=== PATIENT | male | born 1950 | race African-American/Black ===

== ENCOUNTER 2017-03-11 14:02 | Inpatient (IN) ==
[2017-03-11] MEDS ORDERED: LIDOCAINE 100 MG/5 ML SYRINGE ONE (14:03)
[2017-03-11] MEDS ORDERED: AMIODARONE 150 MG/3 ML VIAL ONE (14:03)
[2017-03-11] MEDS ORDERED: AMIODARONE 150 MG/3 ML VIAL IV STA (14:06)
[2017-03-11] MEDS ORDERED: HEPARIN/NACL 0.9% 2 UNITS/ML 1,000 ML IV ONE (14:14)
[2017-03-11] MEDS ORDERED: LIDOCAINE 1%/EPI INJ 20 ML VIAL ONE (14:14)
[2017-03-11] MEDS ORDERED: HEPARIN/NACL 0.9% 2 UNITS/ML 500 ML IV ONE (14:14)
--- NOTE | 2017-03-11 14:17 | Emergency Department Note ---
Arrival - Arrival Stated Complaint: chest pain Mode of Arrival: Stretcher Source: EMS, RN Notes Reviewed - History of Present Illness HPI Narrative: Patient is a 66-year-old white male who developed chest pain lightheadedness and diaphoresis about 45 minutes prior to arrival of EMS. Patient called EMS and upon their arrival the patient was found to have marked EKG changes. STEMI alert was called and patient was transported [place]. As patient was rolled into room 11 he developed V. fib and loss of consciousness. Precordial thump was unsuccessful. Patient was cardioverted 4 with 360 J and had return of sinus rhythm. Onset (ago): hour(s) (1) Consistency: constant Severity: severe Allergies/Adverse Reactions: Allergies Allergy/AdvReac Type Severity Reaction Status Date / Time No Known Allergies Allergy Verified 03/11/17 14:51 Home Medications: Home Medications Medication Instructions Recorded Confirmed Type Unable To Obtain [Unable to Obtain] 03/11/17 03/11/17 History Review of System - Review of System ROS unobtainable: due to mental status 12 point system: reviewed and no additional remarkable complaints except as stated Exam Vital Signs: GENERAL: This is a well-nourished well-developed in extremis. VITAL SIGNS: Reviewed HEENT: Head is atraumatic and normocephalic. Pupils are equal round react to light. Extraocular movements are intact. Oropharynx is benign with moist mucous membranes. NECK: Neck is soft and supple without tenderness. There are no masses. There is no lymphadenopathy. LUNGS: Lungs are clear to auscultation. Chest rises symmetrically. There is no chest wall tenderness. CV: Initially without pulse until cardioversion. Patient had return of pulse with a rate of 129.. ABDOMEN: Abdomen is soft, nontender to palpation. There are no abdominal abnormal masses palpated. There is no organomegaly. Bowel sounds are present and active. SKIN: Diaphoretic. No rash. EXTREMITIES: Patient has full range of motion without tenderness. There is no pedal edema. NEUROLOGIC: Agitated, moves all extremities. Cranial nerves II through XII are grossly intact. Course Course Narrative: Prior to patient's arrival Graphic Design Assistant been notified. Dr. Lou had been notified. Cardiology was present. Patient was given 4000 units of heparin IV push. Patient had been given an aspirin prior to arrival by EMS. Patient was cardioverted with 360 J 4. Patient was taken emergently to the Graphic Design Assistant. Patient was given lidocaine IV prior to intubation. Patient was also given amiodarone 150 mg IV during cardioversions. Procedures - Intubation Time out performed: No sedative: Etomidate Mg Given: 20 paralytic: Succinylcholine Mg Given: 100 Laryngoscope: fiber optic video scope ET Tube Size: 7.5 ET Tube Uncuffed: No Tube Secured Depth (cm): 22 Tube Secured Location: teeth Tube Placement Confirmation: visualized tube passing through cords, equal breath sounds bilaterally, no breath sounds over epigastrium, confirmation detector color change Patient Tolerated Procedure: well Intubation Complications: none Results - EKG EKG results: interpreted by ERMD - Impressions EKG: Sinus rhythm with a rate of [address] segment elevation of 4-5 mm in V2 V3 V4 V5 V6,I, and aVL. Patient had deep reciprocal changes of ST segments in V3 and aVF. - Diagnostic Findings Procedure: Chest x-ray: image reviewed by me (ET tube is in good position above the ajit. This was determined by C arm in Graphic Design Assistant.) Disposition Clinical Impression: Acute ST elevation myocardial infarction (STEMI) of anterior wall, Ventricular fibrillation Disposition: Still a Patient Condition: Critical Time of Disposition: 15:08
[2017-03-11] MEDS ORDERED: fentaNYL 100 MCG/2 ML VIAL ONE (14:20)
[2017-03-11] MEDS ORDERED: MIDAZOLAM 2 MG/2 ML VIAL ONE ×2 (14:20→14:45)
[2017-03-11] MEDS ORDERED: ASPIRIN 325 MG TABLET PO STA (14:21)
[2017-03-11] MEDS ORDERED: HEPARIN 5,000 UNIT/1 ML VIAL IV STA (14:22)
[2017-03-11] MEDS ORDERED: AMIODARONE INJ 150 MG in DEXTROSE 5% 100 ML IV ONE (14:22)
[2017-03-11] MEDS ORDERED: LIDOCAINE 100 MG/5 ML SYRINGE IV STA (14:22)
[2017-03-11] MEDS ORDERED: PROPOFOL 1,000 MG/100 ML BOTTLE IV ONE (14:23)
[2017-03-11] MEDS ORDERED: ETOMIDATE 20 MG/10 ML VIAL IV ONE (14:27)
[2017-03-11] MEDS ORDERED: SUCCINYLCHOLINE 200 MG/10 ML VIAL ONE (14:27)
[2017-03-11] MEDS: PROPOFOL 1,000 MG/100 ML BOTTLE IV SCH ×4 (14:30→22:15)
[2017-03-11] MEDS ORDERED: NOREPINEPHRINE 4 MG/4 ML VIAL IV ONE (14:35)
[2017-03-11] MEDS ORDERED: EPTIFIBATIDE 75 MG/100 ML BOTTLE IV ONE ×2 (14:40→14:42)
[2017-03-11] MEDS ORDERED: EPTIFIBATIDE 20,000 MCG/10 ML VIAL ONE ×2 (14:40→14:42)
[2017-03-11] MEDS ORDERED: SODIUM CHLORIDE 0.9% IV SCH (14:41)
[2017-03-11] MEDS ORDERED: NOREPINEPHRINE IV SCH (14:41)
[2017-03-11] MEDS ORDERED: SUCCINYLCHOLINE 200 MG/10 ML VIAL IV STA (14:47)
[2017-03-11] MEDS ORDERED: ETOMIDATE 20 MG/10 ML VIAL IV STA (14:47)
[2017-03-11] MEDS ORDERED: EPTIFIBATIDE 75 MG/100 ML BOTTLE IV SCH (15:07)
[2017-03-11 15:34] LABS: Basophils % 0.2 % (0.0-0.8); Eosinophils % 0.1 % (0.00-10.9); Hematocrit 40.3 VOL% (42.0-52.0); Hemoglobin 14.1 GM/DL (14.0-18.0); Immature Granulocytes % 0.7 %; Immature Granulocytes Absolute 0.14 #; Lymphocytes # 1.8 10*3/uL (1.4-4.0); Lymphocytes % 9.1 % (21.2-54.2); Mean Corpuscular Hemoglobin 31 PG (27-34); Mean Corpuscular Volume 88.8 FL (87-102); Mean Platelet Volume 10.2 FL (9.6-12.0); Monocytes # 1.2 10*3/uL (0.11-0.8); Monocytes % 5.7 % (1.7-12.7); Neutrophils # 16.9 10*3/uL (1.4-7.4); Neutrophils % 84.2 % (38.7-73.9); Platelet Count 263 T/CUMM (130-400); Red Blood Count 4.54 MC/CUMM (3.8-5.5); Red Cell Distribution Width 13.3 % (9.3-17.3); White Blood Count 20.1 T/CUMM (4-12)
--- NOTE | 2017-03-11 15:43 | Cardiac Catheterization ---
Date of Procedure:: 03/11/17 Pre-op Diagnosis: Acute anterior myocardial infarction with ventricular fibrillation successfully resuscitated Post-op diagnosis: same Procedure: Clinical summary: This is a 66-year-old man presented with an acute anterior myocardial infarction brought in by ambulance. He was brought into the emergency room and on arrival went into ventricular fibrillation was successfully cardioverted to sinus rhythm. He was intubated and brought emergently to the Hand Assembler. He has ST elevation through V2 through 6 and in lead I and L Procedure performed: 1: Left heart catheterization 2: Coronary angiography 3: Aspiration thrombectomy of the proximal LAD 4: Stenting of the proximal LAD with a 4.0 x 15 mm Zions drug-eluting stent 5: Right femoral vein sheath placement 6: Right femoral sheath angiography 7: Angio-Seal closure right femoral arteriotomy site Patient was brought emergently to the Hand Assembler with the right groin was prepped and draped in usual sterile manner. Patient was given appropriate pressor medications to support his blood pressure. He was given intravenous sedation. Please see the flowsheet for details. A needle was inserted in the right femoral artery without difficulty and a 6 [place] sheath was positioned without difficulty. In a.m. Christiano right coronary catheter was advanced over guidewire under fluoroscopic control were 2 angiograms of the right coronary were undertaken ascertain no significant disease in the right coronary system. This catheter then was withdrawn and a Yovani left guide was advanced over guidewire under fluoroscopic control using her where the left main coronary was engaged. An 014 BMW wire was advanced to the distal portion of a large diagonal. A Pronto catheter was advanced over the BMW wire and multiple aspiration runs were taken across the occluded ostial LAD. This catheter then was withdrawn. A 3.0 x 15 mm Lavon balloon was advanced to the ostial stenosis and inflated to 10 marshal. There was improvement in flow down the vessel with residual stenosis noted. At this point the apex balloon was removed and with the assistance of a guide liner a Zions Alpine 4.0 x 15 mm drug-eluting stent was advanced to the area and deployed to maximum 10 marshal. There was good resolution of the stenosis with GAGE grade III flow down the LAD. There was some sluggish flow at the distal LAD but the stented segment appeared to be widely patent. Because of some issues with the patient's peripheral IVs we elected to place a 7 Slovenian sheath in the right femoral vein. This was done without difficulty. The stent delivery balloon and wire as well as a guide liner were removed from the guide. Repeat angiography confirmed good result at the stented segment. The guide was then removed. A pigtail ventriculographic catheter was advanced over guidewire under fluoroscopic control the ascending aorta and across aortic valve where left ventricular end diastolic pressures were measured. This catheter was then pulled back from the ventricle to the aorta under hemodynamic monitoring and removed. The patient underwent right femoral sheath angiography which demonstrated anatomy appropriate for Angio-Seal closure. This was performed without difficulty. Good hemostasis was obtained. Hemodynamics: Please see accompanying data sheet Coronary angiography: Right coronary artery: The right coronary was well-developed and free of significant obstructing lesions. There is diffuse irregularities noted but no significant flow- limiting stenosis can be identified. Left coronary artery: The left main coronary artery is well-developed and free of significant obstructing lesions. The circumflex coronary is a large non-dominant vessel that possesses an area of probably 80-90% stenosis in its midportion. The remainder of the circumflex and its branches are free of significant obstructing lesions. Left anterior descending coronary is completely occluded at its origin. There appears to be a large bulky thrombus noted in the proximal LAD. Filling of the distal LAD is not noted on injection of the [place] left coronary. Percutaneous coronary intervention After the above-described procedures lesion went from total occlusion to roughly 0% stenosis with GAGE grade III flow down the LAD. The LAD at the apical portion appeared to be occluded. There was no significant filling of the apical portion of the LAD noted. Remainder of the LAD and its branches appear to be free of significant obstructing lesions. There are very tortuous proximal vessels which made visualization of each segment of the proximal LAD very difficult but no significant stenosis could be identified. Right femoral sheath angiography: After injection of contrast into the right femoral arterial sheath appears to enter the common femoral above the bifurcation. No significant stenosis of the distal iliac, common femoral or bifurcation be noted based on this limited angiographic study. Conclusions: 1: Total occlusion of the ostium of the LAD now successfully opened with a 4.0 x 15 mm Zions drug-eluting stent with a good angiographic result. There is GAGE grade III flow down the LAD at the end of the procedure 2: Left ventricular end-diastolic pressure 18 mmHg 3: Mid circumflex disease for continued medical therapy at this point 4: Nonocclusive diffuse minor irregularities of the right coronary artery Discussion and recommendations: The patient presents with an acute anterior myocardial infarction complicated by V. fib arrest on presentation to the emergency room. He has now undergone percutaneous coronary intervention with successful opening of the LAD with a good angiographic result noted end procedure. He will be continued on aggressive ventilatory and hemodynamic support. He will watch closely for evidence of recurring ischemia or bleeding. Surgeon / Physician: Tyson Lou Estimated blood loss: minimal Specimens: none sent Condition: stable - Discharge Disposition: Still a Patient - Medications / Follow-up
[2017-03-11] MEDS ORDERED: ONDANSETRON 4 MG/2 ML VIAL IV PRN (15:44)
[2017-03-11 15:58] LABS: Albumin 3.7 G/DL (3.4-5.0); Bilirubin,Total 0.6 MG/DL (0.2-1.0); Calcium 8.3 MG/DL (8.5-10.1); Osmolality,Calculated 282.4 MOS/KG (273-304); Potassium 3.9 MMOL/L (3.5-5.1); Total Protein 6.8 G/DL (6.4-8.3)
[2017-03-11] MEDS ORDERED: SODIUM CHLORIDE 0.45% 1,000 ML IV SCH (16:00)
[2017-03-11 16:08] LABS: INR 1.1; PT Patient Result 11.3 SECS; Partial Thromboplastin Time 28.2 SECS (0-40)
[2017-03-11 17:00] LABS: Hypochromasia Slight; Macrocytosis 1+
[2017-03-11 17:35] LABS: ABG Base Excess -2.9 MMOL/L (-2.5-2.5); ABG Oxygen Saturation 99.6 % (95-100); ABG PCO2 33.5 MM HG (35-48); ABG PH 7.404 (7.35-7.45); ABG TCO2 17.8 MMOL/L (23-27); Allen Test Positive; Pt O2 Delivery Device Ventilator
--- NOTE | 2017-03-11 17:39 | XRay Report ---
Portable chest. Indication: Endotracheal tube placement. The heart is enlarged. There is left ventricular hypertrophy. An endotracheal tube has been placed. Its distal tip is 2 cm above the ajit. The pulmonary vasculature is normal. The lung sharif are clear. Degenerative changes are present within the spinal column and shoulders. Impression: Satisfactory endotracheal tube placement. Enlarged heart. PROCEDURE INTERPRETED AT [facility] DEPARTMENT OF RADIOLOGY Final Report Signed by: Dr. Jazmin Zavala
[2017-03-11] MEDS: TICAGRELOR 90 MG TABLET PO STA ×2 (17:52→19:26)
[2017-03-11] MEDS: TICAGRELOR 90 MG TABLET PO SCH (20:28)
[2017-03-11] MEDS: CARVEDILOL 6.25 MG TABLET PO SCH (22:11)
[2017-03-11] MEDS: ROSUVASTATIN 20 MG TABLET PO SCH (22:11)
[2017-03-11 22:20] LABS: Apearance,Urine CLOUDY (Clear); Bilirubin,Urine Negative (Negative); Blood, Urine Large mg/dL (Negative); Glucose,Urine (UA) Negative (Negative); Ketones,Urine 5 mg/dL (Negative); Nitrite,Urine Negative (Negative); Protein,Urine 100 MG/DL; RBC,Urine 9659 /HPF (0-4); Urine Color Amber (Yellow); Urine Specific Gravity > 1.060 (1.001-1.035); Urine Urobilinogen < 2.0 EU/DL (0.2-1.0); WBC,Urine 84 /HPF (0-6)
[2017-03-11 22:35] LABS: Barbiturates Screen,Urine Negative (Negative); Benzodiazepines Screen,Urine Positive (Negative); Cannabinoid Screen,Urine Negative (Negative); Opiate Screen,Urine Negative (Negative); Phencyclidine Screen,Urine Negative (Negative)
[2017-03-12] MEDS: PROPOFOL 1,000 MG/100 ML BOTTLE IV SCH ×3 (00:36→16:29)
[2017-03-12] MEDS: NOREPINEPHRINE 8 MG in SODIUM CHLORIDE 0.9% 242 ML IV SCH (01:17)
[2017-03-12 04:21] LABS: Basophils % 0.1 % (0.0-0.8); Eosinophils # 0.1 10*3/uL (0.0-0.87); Eosinophils % 0.3 % (0.00-10.9); Hematocrit 36.9 VOL% (42.0-52.0); Hemoglobin 12.8 GM/DL (14.0-18.0); Immature Granulocytes % 0.3 %; Immature Granulocytes Absolute 0.05 #; Lymphocytes # 3.2 10*3/uL (1.4-4.0); Lymphocytes % 22.2 % (21.2-54.2); Mean Corpuscular HGB Conc 34.7 GM/DL (32-36); Mean Corpuscular Hemoglobin 31 PG (27-34); Mean Corpuscular Volume 88.9 FL (87-102); Mean Platelet Volume 10.4 FL (9.6-12.0); Monocytes # 1.5 10*3/uL (0.11-0.8); Monocytes % 10.6 % (1.7-12.7); Neutrophils # 9.5 10*3/uL (1.4-7.4); Neutrophils % 66.5 % (38.7-73.9); Platelet Count 237 T/CUMM (130-400); Red Blood Count 4.15 MC/CUMM (3.8-5.5); Red Cell Distribution Width 13.7 % (9.3-17.3); White Blood Count 14.3 T/CUMM (4-12)
[2017-03-12 05:02] LABS: CKMB % 23.5 %; Risk Ratio 4.42; VLDL CHOLESTEROL 61.2 MG/DL
[2017-03-12 05:19] LABS: Troponin I Only 46.1 NG/ML (0.00-0.045)
--- NOTE | 2017-03-12 07:06 | EKG Report ---
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
--- NOTE | 2017-03-12 08:01 | Cardiology History & Physical ---
Assessment and Plan (1) Coronary artery disease Status: Acute Current Visit: Yes (2) Hypotension Status: Acute Assessment and plan: He is maintaining his blood pressure on low-dose Levophed. His rates are good and his pressures are acceptable. An echocardiogram is pending for this morning. Current Visit: Yes (3) Hematuria Status: Acute Current Visit: Yes (4) Ventricular tachycardia Status: Acute Assessment and plan: He is having runs of 20 beats of ventricular tachycardia times we are waiting on lab from this morning and I do not want to start him on amiodarone unless this continues. Current Visit: Yes (5) Ischemic cardiomyopathy Status: Acute Current Visit: Yes (6) Acute ST elevation myocardial infarction (STEMI) of anterior wall Status: Acute Current Visit: Yes (7) Ventricular fibrillation Status: Acute Current Visit: Yes History of Present Illness Chief complaint: STEMI History of present illness: Mr. Clemons is a 66 year old male who was apparently working in his yard and became diaphoretic and felt that he had gotten "overheated". This progressed to significant chest discomfort. An ambulance was called and the patient was diagnosed fairly promptly with an ST elevation myocardial infarction. The Electro Optics Engineer was activated. When the patient was rolling to the emergency room he was placed in room 11 in the ER and went into ventricular fibrillation and was successfully resuscitated and cardioverted. He was taken emergently to the Electro Optics Engineer where he had opening of the ostial LAD stenosis. He has residual disease in the circumflex which will be addressed at a later time. He has had some mild hypotension which is responded to Levophed and he is overall reasonably stable with good urine output and reasonable pressures on low-dose Levophed. Since his procedure he has been reasonably stable with runs of ventricular tachycardia at 15-20 beats and one episode of what looks like a accelerated idioventricular rhythm. He is currently stable and has good oxygen saturations and is awake and alert and likely will be extubated here shortly. I do not have any prior medical history as the patient has been unable to give me any history. Home Medications Medication Instructions Recorded Confirmed Type No Known Home Medications [No 03/11/17 03/11/17 History Known Home Medications] Allergies Allergy/AdvReac Type Severity Reaction Status Date / Time No Known Allergies Allergy Verified 03/11/17 14:51 Medical,Surgical,& Family Hx - Medical History Cardio: History of: Hypertension - Social History Smoking Status: Unknown if ever smoked Frequency of Alcohol Use: Frequently Type of Drug Use: Unknown Cardiology Physical Exam - Constitutional Vitals: Vital Signs Temp Pulse Resp BP Pulse Ox 97.9 F 70 12 97/73 100 03/12/17 07:15 03/12/17 07:30 03/12/17 07:26 03/12/17 07:30 03/12/17 07:30 Intake and Output 03/11/17 03/11/17 03/12/17 15:59 23:59 07:59 Intake Total 500 / 500 512 / 512 1200 / 1200 Output Total 440 / 440 950 / 950 Balance 500 / 500 72 / 72 250 / 250 Intake: IV 0 / 0 512 / 512 1200 / 1200 INTEGRILIN 75 mg In 100 100 / 100 ml @ 2 MCG/KG/MIN 14.511 mls/hr IV .[id number] HIEN Rx# :[id number] Levophed 10 mg In Ns 250 0 / 0 112 / 112 ml @ 2 MCG/MIN 3.12 mls/ hr IV TITRATE HIEN Rx#: [id number] DIPRIVAN 1,000 mg In 100 300 / 300 200 / 200 ml @ 10 MCG/KG/MIN 5.443 mls/hr IV TITRATE HIEN Rx# :[id number] 1/2Ns 1,000 ml @ 75 mls/ 1000 / 1000 hr IV .[id number] HIEN Rx#: [id number] Intake - Additional IV 500 / 500 Volume (mLs) Left Hand 500 / 500 Output: Urine 440 / 440 950 / 950 Other: Voiding Method Indwelling Catheter Indwelling Catheter Weight 90.718 kg 90.718 kg 91.263 kg Patient Weight 03/12/17 23:59 Weight 91.263 kg Exam: Physical examination: General: The patient is awake and alert and oriented -3. The patient is sedated on the ventilator but is answering questions appropriately HEENT: Normocephalic, sclera are clear there are no lid xanthelasmas noted. Oral mucosa is free of cyanosis or pallor. Neck: The neck is supple without JVD. Carotid upstrokes are normal volume and amplitude. There is no audible bruit. There is no palpable thyroid. Trachea is midline. Chest: Lungs: The patient is comfortable at rest without intercostal retractions or abdominal breathing. There are no adventitial sounds rales rubs rhonchi or wheezes noted. Cardiovascular: The PMI is nondisplaced. No palpable thrill S3 or S4. There is a regular rate and rhythm with no murmur rub or gallop noted. Dorsalis pedis posterior tibial are 1+ and femoral pulses are 1+ and equal bilaterally. Abdomen: Abdomen is soft and nontender with normal active bowel sounds. There is no palpable mass or organomegaly noted. There is no midline bruit. Extremities exam: There is no cyanosis clubbing or edema. Skin: Skin is warm and dry without ecchymosis or urticaria or skin rash. There are no palpable nodules. Musculoskeletal: There is no kyphosis or scoliosis noted. Result/EKG - Labs CBC & BMP: 03/12/17 03:38 03/11/17 15:23 Labs: Laboratory Results - last 24 hr 03/11/17 03/11/17 03/11/17 15:23 15:23 15:23 WBC 20.1 H RBC 4.54 Hgb 14.1 Hct 40.3 L MCV 88.8 MCH 31 MCHC 35.0 RDW 13.3 Plt Count 263 MPV 10.2 Neut % (Auto) 84.2 H Lymph % (Auto) 9.1 L [place] % (Auto) 5.7 Eos % (Auto) 0.1 Baso % (Auto) 0.2 Neut # (Auto) 16.9 H Lymph # (Auto) 1.8 [place] # (Auto) 1.2 H Eos # (Auto) 0.0 Baso # (Auto) 0.0 Immature Gran % 0.7 Nucleated RBC % 0.0 Immature Gran # 0.14 Nucleated RBCs # 0.00 Immature Plt Fraction 0.0 Hypochromasia Slight Macrocytosis 1+ INR 1.1 PT Patient/Control Mix 11.3 Circ Anticoag PTT 28.2 ABG pH ABG pCO2 ABG pO2 ABG HCO3 ABG Total CO2 ABG O2 Saturation ABG Base Excess FiO2 Sodium 140 Potassium 3.9 Chloride 107 Carbon Dioxide 18 L Anion Gap 18.9 H BUN 17 Creatinine 1.80 H GFR Calculation 54 BUN/Creatinine Ratio 9.00 Glucose 140 H Calculated Osmolality 282.4 Calcium 8.3 L Magnesium Total Bilirubin 0.60 AST 44 H ALT 46 Alkaline Phosphatase 76 Total Creatine Kinase CK-MB (CK-2) CK and CKMB Interp Troponin I Total Protein 6.8 Albumin 3.7 Globulin 3.1 Albumin/Globulin Ratio 1.1 Triglycerides Cholesterol LDL Cholesterol VLDL Cholesterol HDL Cholesterol Heart Disease Risk Ratio Urine Color Urine Appearance Urine pH Ur Specific [place] Urine Protein Urine Glucose (UA) Urine Ketones Urine Blood Urine Nitrate Urine Bilirubin Urine Urobilinogen Urine Leukocytes Urine RBC Urine WBC Ur Culture Indicated? Urine Opiates Screen Ur Barbiturates Screen Ur Phencyclidine Scrn U Amphetamine/Methamph U Benzodiazepines Scrn U Cocaine Metab Screen U Cannabinoids Screen 03/11/17 03/11/17 03/11/17 15:23 15:23 17:10 WBC RBC Hgb Hct MCV MCH MCHC RDW Plt Count MPV Neut % (Auto) Lymph % (Auto) [place] % (Auto) Eos % (Auto) Baso % (Auto) Neut # (Auto) Lymph # (Auto) [place] # (Auto) Eos # (Auto) Baso # (Auto) Immature Gran % Nucleated RBC % Immature Gran # Nucleated RBCs # Immature Plt Fraction Hypochromasia Macrocytosis INR PT Patient/Control Mix Circ Anticoag PTT ABG pH ABG pCO2 ABG pO2 ABG HCO3 ABG Total CO2 ABG O2 Saturation ABG Base Excess FiO2 Sodium Potassium Chloride Carbon Dioxide Anion Gap BUN Creatinine GFR Calculation BUN/Creatinine Ratio Glucose Calculated Osmolality Calcium Magnesium 2.3 Total Bilirubin AST ALT Alkaline Phosphatase Total Creatine Kinase CK-MB (CK-2) CK and CKMB Interp Troponin I 0.822 H 7.680 H D Total Protein Albumin Globulin Albumin/Globulin Ratio Triglycerides Cholesterol LDL Cholesterol VLDL Cholesterol HDL Cholesterol Heart Disease Risk Ratio Urine Color Urine Appearance Urine pH Ur Specific [place] Urine Protein Urine Glucose (UA) Urine Ketones Urine Blood Urine Nitrate Urine Bilirubin Urine Urobilinogen Urine Leukocytes Urine RBC Urine WBC Ur Culture Indicated? Urine Opiates Screen Ur Barbiturates Screen Ur Phencyclidine Scrn U Amphetamine/Methamph U Benzodiazepines Scrn U Cocaine Metab Screen U Cannabinoids Screen 03/11/17 03/11/17 03/11/17 17:25 20:55 21:00 WBC RBC Hgb Hct MCV MCH MCHC RDW Plt Count MPV Neut % (Auto) Lymph % (Auto) [place] % (Auto) Eos % (Auto) Baso % (Auto) Neut # (Auto) Lymph # (Auto) [place] # (Auto) Eos # (Auto) Baso # (Auto) Immature Gran % Nucleated RBC % Immature Gran # Nucleated RBCs # Immature Plt Fraction Hypochromasia Macrocytosis INR PT Patient/Control Mix Circ Anticoag PTT ABG pH 7.404 ABG pCO2 33.5 L ABG pO2 556.0 H ABG HCO3 22.0 ABG Total CO2 17.8 L ABG O2 Saturation 99.6 ABG Base Excess -2.9 L FiO2 100.00 Sodium Potassium Chloride Carbon Dioxide Anion Gap BUN Creatinine GFR Calculation BUN/Creatinine Ratio Glucose Calculated Osmolality Calcium Magnesium Total Bilirubin AST ALT Alkaline Phosphatase Total Creatine Kinase CK-MB (CK-2) CK and CKMB Interp Troponin I 28.000 H D Total Protein Albumin Globulin Albumin/Globulin Ratio Triglycerides Cholesterol LDL Cholesterol VLDL Cholesterol HDL Cholesterol Heart Disease Risk Ratio Urine Color [place] Urine Appearance Cloudy Urine pH 6.0 Ur Specific [place] > 1.060 H Urine Protein 100 Urine Glucose (UA) Negative Urine Ketones 5 Urine Blood Large Urine Nitrate Negative Urine Bilirubin Negative Urine Urobilinogen < 2.0 H Urine Leukocytes Negative Urine RBC 9659 Urine WBC 84 Ur Culture Indicated? Results to follow Urine Opiates Screen Ur Barbiturates Screen Ur Phencyclidine Scrn U Amphetamine/Methamph U Benzodiazepines Scrn U Cocaine Metab Screen U Cannabinoids Screen 03/11/17 03/12/17 03/12/17 21:00 01:53 03:38 WBC 14.3 H RBC 4.15 Hgb 12.8 L Hct 36.9 L MCV 88.9 MCH 31 MCHC 34.7 RDW 13.7 Plt Count 237 MPV 10.4 Neut % (Auto) 66.5 Lymph % (Auto) 22.2 [place] % (Auto) 10.6 Eos % (Auto) 0.3 Baso % (Auto) 0.1 Neut # (Auto) 9.5 H Lymph # (Auto) 3.2 [place] # (Auto) 1.5 H Eos # (Auto) 0.1 Baso # (Auto) 0.0 Immature Gran % 0.3 Nucleated RBC % 0.0 Immature Gran # 0.05 Nucleated RBCs # 0.00 Immature Plt Fraction 0.0 Hypochromasia Macrocytosis INR PT Patient/Control Mix Circ Anticoag PTT ABG pH ABG pCO2 ABG pO2 ABG HCO3 ABG Total CO2 ABG O2 Saturation ABG Base Excess FiO2 Sodium Potassium Chloride Carbon Dioxide Anion Gap BUN Creatinine GFR Calculation BUN/Creatinine Ratio Glucose Calculated Osmolality Calcium Magnesium Total Bilirubin AST ALT Alkaline Phosphatase Total Creatine Kinase CK-MB (CK-2) CK and CKMB Interp Troponin I 44.500 H D Total Protein Albumin Globulin Albumin/Globulin Ratio Triglycerides Cholesterol LDL Cholesterol VLDL Cholesterol HDL Cholesterol Heart Disease Risk Ratio Urine Color Urine Appearance Urine pH Ur Specific [place] Urine Protein Urine Glucose (UA) Urine Ketones Urine Blood Urine Nitrate Urine Bilirubin Urine Urobilinogen Urine Leukocytes Urine RBC Urine WBC Ur Culture Indicated? Urine Opiates Screen Negative Ur Barbiturates Screen Negative Ur Phencyclidine Scrn Negative U Amphetamine/Methamph Negative U Benzodiazepines Scrn Positive H U Cocaine Metab Screen Negative U Cannabinoids Screen Negative 03/12/17 03:38 WBC RBC Hgb Hct MCV MCH MCHC RDW Plt Count MPV Neut % (Auto) Lymph % (Auto) [place] % (Auto) Eos % (Auto) Baso % (Auto) Neut # (Auto) Lymph # (Auto) [place] # (Auto) Eos # (Auto) Baso # (Auto) Immature Gran % Nucleated RBC % Immature Gran # Nucleated RBCs # Immature Plt Fraction Hypochromasia Macrocytosis INR PT Patient/Control Mix Circ Anticoag PTT ABG pH ABG pCO2 ABG pO2 ABG HCO3 ABG Total CO2 ABG O2 Saturation ABG Base Excess FiO2 Sodium Potassium Chloride Carbon Dioxide Anion Gap BUN Creatinine GFR Calculation BUN/Creatinine Ratio Glucose Calculated Osmolality Calcium Magnesium Total Bilirubin AST ALT 57 Alkaline Phosphatase Total Creatine Kinase 1221 H CK-MB (CK-2) 286.8 H CK and CKMB Interp 23.5 Troponin I 46.100 H Total Protein Albumin Globulin Albumin/Globulin Ratio Triglycerides 306 H Cholesterol 212 H LDL Cholesterol 133.0 VLDL Cholesterol 61.2 HDL Cholesterol 48 Heart Disease Risk Ratio 4.42 Urine Color Urine Appearance Urine pH Ur Specific [place] Urine Protein Urine Glucose (UA) Urine Ketones Urine Blood Urine Nitrate Urine Bilirubin Urine Urobilinogen Urine Leukocytes Urine RBC Urine WBC Ur Culture Indicated? Urine Opiates Screen Ur Barbiturates Screen Ur Phencyclidine Scrn U Amphetamine/Methamph U Benzodiazepines Scrn U Cocaine Metab Screen U Cannabinoids Screen Quality Measures - VTE Contraindication to Pharmacological VTE Prophylaxis: High Risk of Bleeding
--- NOTE | 2017-03-12 08:13 | EKG Report ---
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
[2017-03-12 08:25] LABS: Albumin 3.7 G/DL (3.4-5.0); Calcium 8.7 MG/DL (8.5-10.1); Osmolality,Calculated 286.1 MOS/KG (273-304); Potassium 4.2 MMOL/L (3.5-5.1); Total Protein 6.9 G/DL (6.4-8.3)
--- NOTE | 2017-03-12 08:35 | Pulmonology Consult Note ---
Assessment and Plan (1) Acute respiratory failure Status: Acute Assessment and plan: This was due to ventricular fibrillation requiring emergent intubation with subsequent cardiac intervention with catheterization. He is alert has a clear chest x-ray no history of lung disease. Will get him extubated this morning. Current Visit: Yes (2) Acute ST elevation myocardial infarction (STEMI) of anterior wall Status: Acute Assessment and plan: Due to LAD occlusion with clot. He had a thrombectomy with stent. Not clear what his LV function is at this point. Does not appear to be in heart failure radiographically or by physical exam. Current Visit: Yes (3) Ventricular fibrillation Status: Acute Assessment and plan: Episode in the ER treated with defibrillation and intubation. Current Visit: Yes History of Present Illness Chief complaint: Post MCI, ventricular fibrillation History of present illness: Mr. Clemons is a 66 year old male who was admitted yesterday with chest pain and dizziness. He had an acute anterior myocardial infarction. He had ventricular fibrillation in the emergency room and was intubated. He has been for cardiac catheterization and intervention. He had a clot in his LAD. This was removed. He had an LAD stent placed. He is now alert and calm on the ventilator and ready for extubation. No history of any lung disease. Has a clear chest x-ray. Home Medications Medication Instructions Recorded Confirmed Type No Known Home Medications [No 03/11/17 03/11/17 History Known Home Medications] Allergies Allergy/AdvReac Type Severity Reaction Status Date / Time No Known Allergies Allergy Verified 03/11/17 14:51 ROS unobtainable: due to endotracheal tube Exam (Pulmonay) H&P - Constitutional Vitals: Period Temp Pulse Resp BP Sys/Walter Pulse Ox Last 24 Hr 96.6 F-97.9 F 0-129 12-28 79-138/53-98 98-100 Exam: Vital signs are normal. Patient responsive. Pupils react to light. Has orotracheal tube in place. Neck supple no bruits. Chest sounds clear. Heart normal rate and rhythm no murmurs. Abdomen soft nontender no masses. Extremities no clubbing cyanosis edema. Calves nontender. Medical,Surgical,& Family Hx - Medical History Cardio: History of: Hypertension - Social History Smoking Status: Unknown if ever smoked Frequency of Alcohol Use: Frequently Type of Drug Use: Unknown Results - Labs CBC & BMP: 03/12/17 03:38 03/12/17 07:54 Lab Results: I have reviewed the past 24 hour labs - Diagnostic Findings Procedure: Chest x-ray: image reviewed by me (Lungs clear. ET tube about 2 cm above the ajit.) Quality Measures - VTE Contraindication to Pharmacological VTE Prophylaxis: High Risk of Bleeding
[2017-03-12] MEDS: ENALAPRIL 2.5 MG TABLET PO SCH (08:42)
[2017-03-12] MEDS: PANTOPRAZOLE 40 MG TABLET PO SCH (08:42)
[2017-03-12] MEDS: TICAGRELOR 90 MG TABLET PO SCH ×2 (08:42→20:24)
[2017-03-12] MEDS: ASPIRIN EC 81 MG TABLET PO SCH (08:42)
[2017-03-12] MEDS: CARVEDILOL 6.25 MG TABLET PO SCH ×2 (08:43→20:24)
[2017-03-12 09:02] LABS: Allen Test Positive; Pt O2 Delivery Device Ventilator
--- NOTE | 2017-03-12 09:10 | XRay Report ---
Portable chest. Indication: Ventilated patient. Comparison: May 11, 2017. The heart is normal in size with left ventricular hypertrophy. The distal tip of the endotracheal tube is 2.4 cm above the ajit. The lung sharif are clear. No pneumothorax or pleural effusion. The distal tip of the nasogastric tube projects off the field of the film, beyond the GE junction. Impression: No acute process is seen. PROCEDURE INTERPRETED AT [facility] DEPARTMENT OF RADIOLOGY Final Report Signed by: Dr. Jazmin Zavala
[2017-03-12 09:20] LABS: ABG Base Excess 0.1 MMOL/L (-2.5-2.5); ABG HCO3 24.5 MMOL/L (20-26); ABG PCO2 37.3 MM HG (35-48); ABG TCO2 20.9 MMOL/L (23-27)
[2017-03-12 11:27] LABS: ABG Base Excess -0.1 MMOL/L (-2.5-2.5); ABG HCO3 23.9 MMOL/L (20-26); ABG Oxygen Saturation 98.2 % (95-100); ABG PCO2 36.6 MM HG (35-48); ABG PH 7.432 (7.35-7.45)
--- NOTE | 2017-03-12 15:38 | ECHO Report ---
DeonteMichael Exam Date: 03/12/2017 09:16 Referring Physician: Technologist: hailey Palomo ARDMS, RVT Age: 66 Ht (in): 72 Wt (lb): 200 Gender: M Exam Location: [facility] Echo Indications: STEMI, V-Fib, V-Tach, CAD, S/P heart cath, Hypotension BP: 118 / 80 HR: 66 Rhythm: Sinus Technical Quality: Technically difficult study IMPRESSIONS Technically limited study, with poor visualization of the left ventricle. Normal left ventricular size, without hypertrophy, with severe hypokinesis of the mid to distal anterior/anterolateral wall, including the apex. The remaining segments have normal systolic thickening. Estimated left ventricular ejection fraction 40%. Normal diastolic function. Mild biatrial enlargement. MEASUREMENTS (Male / Female) Normal Values 2D ECHO LV Diastolic Diameter PLAX 6.0 cm 4.2 - 5.9 / 3.9 - 5.3 cm LV Systolic Diameter PLAX 4.7 cm LV Fractional Shortening PLAX 21.1 % IVS Diastolic Thickness 0.6 cm 0.6 - 1.0 / 0.6 - 0.9 cm LVPW Diastolic Thickness 1.0 cm 0.6 - 1.0 / 0.6 - 0.9 cm RV Internal Dim ED PLAX 3.7 cm Aortic Root Diameter 3.8 cm LA Systolic Diameter LX 4.4 cm 3.0 - 4.0 / 2.7 - 3.8 cm DOPPLER TR Peak Velocity 224.0 cm/s TR Peak Gradient 20.1 mmHg FINDINGS Left Ventricle Technically limited study, with poor visualization of the left ventricle. Normal left ventricular size, without hypertrophy, with severe hypokinesis of the mid to distal anterior/anterolateral wall, including the apex. The remaining segments have normal systolic thickening. Estimated left ventricular ejection fraction 40%. Normal diastolic function. Right Ventricle Normal right ventricular size, with normal systolic function. Right Atrium The right atrium is mildly enlarged. Left Atrium The left atrium is mildly enlarged. Mitral Valve Morphologically normal mitral valve without significant stenosis or prolapse. There is no mitral regurgitation. Aortic Valve Morphologically normal aortic valve without significant sclerosis or stenosis. There is no aortic regurgitation. Tricuspid Valve Morphologically normal tricuspid valve without significant stenosis or regurgitation. Insufficient data to estimate pulmonary artery systolic pressure. Pulmonic Valve Pulmonic valve not well visualized. No pulmonary valve regurgitation. Pericardium Normal pericardium without effusion. Aorta Normal ascending aorta dimension. Shaheen Roka (Electronically Signed) Final Date: 12 March 2017 15:36
[2017-03-12] MEDS: diphenhydrAMINE CAP 50 MG CAPSULE PO SCH (20:24)
[2017-03-12] MEDS: ROSUVASTATIN 20 MG TABLET PO SCH (20:24)
[2017-03-13] MEDS: NOREPINEPHRINE 8 MG in SODIUM CHLORIDE 0.9% 242 ML IV SCH (00:34)
[2017-03-13 07:01] LABS: Calcium 8.1 MG/DL (8.5-10.1); Magnesium 2.5 MG/DL (1.8-2.4); Osmolality,Calculated 281.3 MOS/KG (273-304); Potassium 3.8 MMOL/L (3.5-5.1)
--- NOTE | 2017-03-13 07:22 | EKG Report ---
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
[2017-03-13] MEDS: ASPIRIN EC 81 MG TABLET PO SCH (08:21)
[2017-03-13] MEDS: PANTOPRAZOLE 40 MG TABLET PO SCH (08:21)
[2017-03-13] MEDS: CARVEDILOL 6.25 MG TABLET PO SCH ×2 (08:21→20:54)
[2017-03-13] MEDS: TICAGRELOR 90 MG TABLET PO SCH ×2 (08:21→20:54)
[2017-03-13] MEDS: ENALAPRIL 2.5 MG TABLET PO SCH (08:23)
--- NOTE | 2017-03-13 08:49 | XRay Report ---
Exam: XR chest 1V portable Date: 03/13/2017 4:00 AM Indication: Follow-up ventilator extubation Comparison: 03/12/2017 Technical: AP Findings: Cardiomegaly is present with ASVD. Endotracheal tube has been removed. External cardiac leads are present. Mediastinum is otherwise intact. Degenerative changes are present along the thoracic spine. No pneumothorax. Impression: 1. Removal endotracheal tube and cardiac pad 2. Cardiomegaly without overt decompensation with minimal basilar atelectatic change in the left. PROCEDURE INTERPRETED AT [facility] DEPARTMENT OF RADIOLOGY Final Report Signed by: Dr. Freddy Sinha
--- NOTE | 2017-03-13 12:04 | Cardiology Progress Note ---
<Marie Prince E - Last Filed: 03/13/17 11:50> Assessment and Plan - Time spent with patient Time spent with patient: Greater than 30 minutes (1) Dyslipidemia Status: Chronic Assessment and plan: SEE PLAN OF CARE LISTED BELOW Current Visit: Yes (2) Acute ST elevation myocardial infarction (STEMI) of anterior wall Status: Acute Assessment and plan: SEE PLAN OF CARE LISTED BELOW Current Visit: Yes (3) Ventricular fibrillation Status: Resolved Assessment and plan: SEE PLAN OF CARE LISTED BELOW Current Visit: Yes (4) Coronary artery disease Status: Chronic Assessment and plan: SEE PLAN OF CARE LISTED BELOW Current Visit: Yes Qualifiers: Coronary Disease-Associated Artery/Lesion type: [place] artery [place] vs. transplanted heart: [place] heart (5) Ventricular tachycardia Status: Resolved Assessment and plan: SEE PLAN OF CARE LISTED BELOW Current Visit: Yes (6) Ischemic cardiomyopathy Status: Acute Assessment and plan: SEE PLAN OF CARE LISTED BELOW Current Visit: Yes (7) Acute respiratory failure Status: Resolved Assessment and plan: SEE PLAN OF CARE LISTED BELOW Current Visit: Yes Cardiology - PN: Subj Interval history: CARDIOLOGY: DR. HOWELL (New) SUMMARY: Mr. Clemons, 66WM, with no prior history of known coronary artery disease presented to the ER March 11, 2017 with STEMI. As the patient was entering the emergency department, he went into ventricular fibrillation and was successfully resuscitated and cardioverted, intubated. At that time he was emergently taken to the cardiac catheterization lab where he required thrombectomy and stenting of an ostial LAD stenosis. He has residual disease in the circumflex (80-90% stenosis in the midportion) which will be addressed at a later time. He did require pressors postoperatively and this has been weaned off. Postoperatively he did have several runs of ventricular tachycardia (15-20 beats) and an accelerated idioventricular rhythm. Patient has been extubated and progressing nicely at this time. Echocardiogram: EF 40% , no significant valvular abnormality. 2016: This morning, patient is doing well. He denies chest pain, heaviness or tightness. No additional arrhythmias noted overnight. Patient is tolerating aspirin, Brilinta, beta-ramon, KRISTEN inhibitor and lipid-lowering agent. Cardiac rehab has seen and evaluated the patient. At this time, we will ask that he ambulate a bit more and may be transitioned to our telemetry unit. I will further discuss with Dr. Yu and await additional recommendations. IMPRESSION/PLAN: 1. STEMI OF ANTERIOR WALL - status post emergent revascularization of the LAD. Continue aspirin and Brilinta. 2. HYPERTENSION - tolerating beta-ramon and KRISTEN inhibitor. 3. DYSLIPIDEMIA - LDL 133. Patient is currently being treated with Crestor. Triglycerides are 306 and I will add omega-3 fish oil twice daily. 4. CARDIOMYOPATHY -EF 40%. Suspect this is ischemic related to his recent cardiac insult. Hopefully, with current cardiac cocktail of medications his ejection fraction will improve and normalized. 5. VENTRICULAR ARRHYTHMIAS -no additional arrhythmias noted overnight. Beta- blockade continues. We will continue to monitor his telemetry. 6. ACUTE RESPIRATORY FAILURE - patient has now been successfully weaned from ventilator and is tolerating this without problems at all. SPO2 saturation 96% Exam (Progress Note) - Constitutional Vitals: Period Temp Pulse Resp BP Sys/Walter Pulse Ox Last 24 Hr 98.1 F-99.8 F 60-98 12-18 86-118/46-77 96-100 Exam: General: [Appears well with no apparent distress.] [Pleasant and cooperative. ] [Appears comfortable.] HEENT: [PERRL, normocephalic, atraumatic. Mucous membranes moist. No jaundice noted. Conjunctiva moist and clear, sclerae anicteric] Neck: No JVD/HJR, no thyromegaly or lymphadenopathy noted. No carotid bruit appreciated Cardiac: [Regular rate and rhythm.] [No murmur rub or gallop.] Lungs: [Clear to auscultation without accessory muscle use to assist the respiratory pattern.] Not requiring oxygen. Abdomen: Soft, bowel sounds normoactive. Nontender and nondistended. No abdominal bruit or thrill noted. No masses noted. Musculoskeletal: No fluid collection. Decreased range of motion is noted. Extremities: Right groin soft, free of hematoma or bruit. Mild ecchymosis noted. No clubbing, cyanosis noted. [ No edema noted.] Upper extremity pulses 2+. Lower extremity pulses 2+. Capillary refill less than 3 seconds. Skin: No unusual lesions or rashes. No skin breakdown appreciated. Neuro: Awake, alert and oriented 3. Moves all extremities well without hemiparesis or paralysis. No essential tremor is appreciated. Result/EKG - Labs CBC & BMP: 03/12/17 03:38 03/13/17 04:21 Lab Results: I have reviewed the past 24 hour labs Labs: Laboratory Results - last 24 hr 03/13/17 04:21 Sodium 141 Potassium 3.8 Chloride 107 Carbon Dioxide 27 Anion Gap 10.8 BUN 16 Creatinine 1.00 GFR Calculation 113 BUN/Creatinine Ratio 16.00 Glucose 103 Calculated Osmolality 281.3 Calcium 8.1 L Magnesium 2.5 H - Diagnostic Findings Procedure: Chest x-ray: report reviewed by me - EKG EKG results: interpreted by me EKG shows: sinus rhythm Quality Measures - VTE Contraindication to Pharmacological VTE Prophylaxis: High Risk of Bleeding Specialty Discharge - Follow Up or Referrals <Pasquale Yu - Last Filed: 03/13/17 13:53> Exam (Progress Note) - Constitutional Vitals: Period Temp Pulse Resp BP Sys/Walter Pulse Ox Last 24 Hr 98.1 F-99.8 F 60-98 12-18 86-118/46-77 96-100 Result/EKG - Labs CBC & BMP: 03/12/17 03:38 03/13/17 04:21 Labs: Laboratory Results - last 24 hr 03/13/17 04:21 Sodium 141 Potassium 3.8 Chloride 107 Carbon Dioxide 27 Anion Gap 10.8 BUN 16 Creatinine 1.00 GFR Calculation 113 BUN/Creatinine Ratio 16.00 Glucose 103 Calculated Osmolality 281.3 Calcium 8.1 L Magnesium 2.5 H
[2017-03-13] MEDS: ROSUVASTATIN 20 MG TABLET PO SCH (20:54)
[2017-03-13] MEDS: OMEGA 3 ACID ETHYL ESTERS 1 GM CAPSULE PO SCH (20:54)
[2017-03-13] MEDS: diphenhydrAMINE CAP 50 MG CAPSULE PO SCH (20:54)
[2017-03-14 05:27] LABS: Basophils % 0.4 % (0.0-0.8); Eosinophils # 0.4 10*3/uL (0.0-0.87); Eosinophils % 3.6 % (0.00-10.9); Hemoglobin 11.9 GM/DL (14.0-18.0); Immature Granulocytes % 0.2 %; Immature Granulocytes Absolute 0.02 #; Lymphocytes # 2.8 10*3/uL (1.4-4.0); Lymphocytes % 27.1 % (21.2-54.2); Mean Corpuscular Hemoglobin 30 PG (27-34); Mean Corpuscular Volume 89.3 FL (87-102); Mean Platelet Volume 11.1 FL (9.6-12.0); Monocytes # 0.9 10*3/uL (0.11-0.8); Neutrophils # 6.1 10*3/uL (1.4-7.4); Neutrophils % 59.7 % (38.7-73.9); Platelet Count 199 T/CUMM (130-400); Red Blood Count 3.92 MC/CUMM (3.8-5.5); Red Cell Distribution Width 13.2 % (9.3-17.3); White Blood Count 10.3 T/CUMM (4-12)
[2017-03-14 05:53] LABS: Calcium 8.4 MG/DL (8.5-10.1); Magnesium 2.1 MG/DL (1.8-2.4); Osmolality,Calculated 283.1 MOS/KG (273-304); Potassium 3.8 MMOL/L (3.5-5.1)
--- NOTE | 2017-03-14 06:57 | EKG Report ---
Stationary ECG Study 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
--- NOTE | 2017-03-14 07:26 | Pulmonology Progress Note ---
Pulmonary - PN: Subj Interval history: 66-year-old white male that had an acute myocardial infarction with ventricular fibrillation. He was defibrillated and mechanically ventilated he had catheterization with removal of a clot from his LAD and dilatation with stent. He is now off the ventilator. O2 sat normal on room air. Should be ready to go to telemetry. Cardiology is considering further intervention on the LAD stent appears. Exam (Progress Note) - Constitutional Vitals: Period Temp Pulse Resp BP Sys/Walter Pulse Ox Last 24 Hr 97.4 F-98.5 F 59-87 14-22 105-148/46-93 96-100 Exam: Patient is alert oriented vital signs normal. Pupils react to light. Throat is clear. Neck supple no bruits. Chest is clear equal breath sounds. Heart normal rate and rhythm no murmurs. Abdomen soft nontender no masses. Extremities no clubbing cyanosis or edema. Calves nontender. Results - Labs CBC & BMP: 03/14/17 04:26 03/14/17 04:26 Lab Results: I have reviewed the past 24 hour labs Assessment and Plan (1) Acute respiratory failure Status: Resolved Assessment and plan: This was due to ventricular fibrillation requiring emergent intubation with subsequent cardiac intervention with catheterization. He is alert has a clear chest x-ray no history of lung disease. Will get him extubated this morning. 03/14/2017 this has resolved. He was extubated yesterday. Current Visit: Yes (2) Acute ST elevation myocardial infarction (STEMI) of anterior wall Status: Acute Assessment and plan: Due to LAD occlusion with clot. He had a thrombectomy with stent. Not clear what his LV function is at this point. Does not appear to be in heart failure radiographically or by physical exam. 03/14/2017 no active chest pain. Current Visit: Yes (3) Ventricular fibrillation Status: Resolved Assessment and plan: Episode in the ER treated with defibrillation and intubation. 03/13/2017 treated with defibrillator in the ER. Current Visit: Yes Specialty Discharge - Follow Up or Referrals
--- NOTE | 2017-03-14 08:28 | XRay Report ---
XR chest 1V portable Indication: Ventilator Comparison: Chest x-ray dated March 13, 2017 Technique: Single frontal view of the chest. Findings: The cardiomediastinal silhouette is stable in configuration. Chronic change of the lungs without focal consolidation, pleural effusion, or pneumothorax. Continued mild elevation of the right hemidiaphragm. Visualized osseous and surrounding soft tissue structures appear grossly unchanged. IMPRESSION: No adverse interval change. PROCEDURE INTERPRETED AT [facility] DEPARTMENT OF RADIOLOGY Final Report Signed by: Dr Jamie Donald
[2017-03-14] MEDS: CARVEDILOL 6.25 MG TABLET PO SCH (09:08)
[2017-03-14] MEDS: OMEGA 3 ACID ETHYL ESTERS 1 GM CAPSULE PO SCH (09:08)
[2017-03-14] MEDS: ENALAPRIL 2.5 MG TABLET PO SCH (09:08)
[2017-03-14] MEDS: PANTOPRAZOLE 40 MG TABLET PO SCH (09:08)
[2017-03-14] MEDS: TICAGRELOR 90 MG TABLET PO SCH (09:08)
[2017-03-14] MEDS: ASPIRIN EC 81 MG TABLET PO SCH (09:08)
[2017-03-14 09:09] VITALS: BP 143/91
--- NOTE | 2017-03-14 10:09 | Discharge Summary ---
Hospital Course - Hospital Course Hospital Course: CARDIOLOGY: DR. LOU (New) Mr. Clemons, 66WM, with no prior history of known coronary artery disease presented to the ER March 11, 2017 with STEMI. As the patient was entering the emergency department, he went into ventricular fibrillation and was successfully resuscitated and cardioverted, intubated. At that time he was emergently taken to the cardiac catheterization lab where he required thrombectomy and stenting of an ostial LAD stenosis. He has residual disease in the circumflex (80-90% stenosis in the midportion) which will be addressed at a later date. He did require pressors postoperatively, weaned off within 24 hours. Immediately postoperatively, he did have several runs of ventricular tachycardia (15-20 beats) and an accelerated idioventricular rhythm. Echocardiogram: EF 40%, no significant valvular abnormality. Patient has been ambulating without chest pain, heaviness or tightness. Right groin soft, free of hematoma or bruit. Dr. Yu has seen patient and evaluated patient today. Patient is being discharged home in stable condition. He will be given a 2 week follow-up appoint with Dr. Lou to discuss timing of, treatment of mid circumflex stenosis. Because the patient was actually in cardiogenic shock during and after the procedure, it is felt that the patient was best served by discharging patient and allowing him to recover prior to proceeding with staged intervention. Patient has been seen and counseled by cardiac rehabilitation. He is being discharged home on the following cardiac medications: Aspirin 81 mg orally daily Brilinta 90 mg orally twice daily. Patient is being given a prescription card at discharge Carvedilol 6.25 mg orally twice daily Enalapril 2.5 mg orally daily Crestor 40 mg's orally each evening [place]-3. 1 g orally twice daily - Time spent with patient Time with patient DS: Greater than 30 minutes Diagnosis - Discharge Diagnosis (1) Dyslipidemia Status: Chronic (2) Acute ST elevation myocardial infarction (STEMI) of anterior wall Status: Resolved (3) Ventricular fibrillation Status: Resolved (4) Coronary artery disease Status: Chronic (5) Ventricular tachycardia Status: Resolved (6) Ischemic cardiomyopathy Status: Acute (7) Acute respiratory failure Status: Resolved Specialty Discharge - Follow Up or Referrals Follow up with: Tyson Lou MD [Physician] - 2 Weeks (BMP, magnesium, CBC. EKG) Discharge Plan - Discharge Data Disposition: Disch To Home/Self Care Condition at Discharge: Stable Discharge Diet: heart healthy Activity: other (Post cath expectations) Hygiene: other (Post cath expectations) Weight Bearing at Discharge: other (Post cath expectations) Driving: other (Post cath expectations) Contact your physician if you experience:: fever over 101, Difficulty voiding, Redness or swelling, Nausea/Vomiting, Shortness of breath, Bleeding, pain uncontrolled by pain medications - Discharge Medications No Action No Known Home Medications [No Known Home Medications] - Follow Up or Referral Follow Up: Tyson Lou MD [Physician] - 2 Weeks (BMP, magnesium, CBC. EKG) - Forms/Instructions Instructions: Carvedilol (By mouth), Ticagrelor (By mouth), Myocardial Infarction (GEN), Coronary Artery Disease (GEN), Left Heart Catheterization (DC) , Heart Healthy Diet (GEN), Coronary Intravascular Stent Placement (DC), Coronary Intravascular Stent Placement, Electrician Supervisor Airplane (GEN) Additional Discharge Instructions: Please give patient Brilinta prescription card at discharge. Exam - Constitutional Vitals: Period Temp Pulse Resp BP Sys/Walter Pulse Ox Last 24 Hr 97.4 F-98.5 F 59-84 14-22 105-148/46-93 96-100 Exam: General: [Appears well with no apparent distress.] [Pleasant and cooperative. ] [Appears comfortable.] HEENT: [PERRL, normocephalic, atraumatic. Mucous membranes moist. No jaundice noted. Conjunctiva moist and clear, sclerae anicteric] Neck: No JVD/HJR, no thyromegaly or lymphadenopathy noted. No carotid bruit appreciated Cardiac: [Regular rate and rhythm.] [No murmur rub or gallop.] Lungs: [Clear to auscultation without accessory muscle use to assist the respiratory pattern.] Not requiring oxygen. Abdomen: Soft, bowel sounds normoactive. Nontender and nondistended. No abdominal bruit or thrill noted. No masses noted. Musculoskeletal: No fluid collection. Decreased range of motion is noted. Extremities: Right groin soft, free of hematoma or bruit. Mild ecchymosis noted. No clubbing, cyanosis noted. [ No edema noted.] Upper extremity pulses 2+. Lower extremity pulses 2+. Capillary refill less than 3 seconds. Skin: No unusual lesions or rashes. No skin breakdown appreciated. Neuro: Awake, alert and oriented 3. Moves all extremities well without hemiparesis or paralysis. No essential tremor is appreciated. Discharge Results Procedures and tests throughout hospitalization: Pending Orders 03/11/17 14:12 CL heart Stat 03/13/17 14:51 CL heart Routine 03/15/17 04:00 Basic Metabolic Panel w/Mg IN AM CBC [Comp Blood Count Auto Diff] IN AM 03/16/17 04:00 Basic Metabolic Panel w/Mg IN AM Labs on day of discharge: Labs from last 24 hours 03/14/17 03/14/17 04:26 04:26 WBC 10.3 RBC 3.92 Hgb 11.9 L Hct 35.0 L MCV 89.3 MCH 30 MCHC 34.0 RDW 13.2 Plt Count 199 MPV 11.1 Neut % (Auto) 59.7 Lymph % (Auto) 27.1 [place] % (Auto) 9.0 Eos % (Auto) 3.6 Baso % (Auto) 0.4 Neut # (Auto) 6.1 Lymph # (Auto) 2.8 [place] # (Auto) 0.9 H Eos # (Auto) 0.4 Baso # (Auto) 0.0 Immature Gran % 0.2 Nucleated RBC % 0.0 Immature Gran # 0.02 Nucleated RBCs # 0.00 Immature Plt Fraction 0.0 Sodium 142 Potassium 3.8 Chloride 108 H Carbon Dioxide 29 Anion Gap 8.8 BUN 12 Creatinine 0.80 GFR Calculation 135 BUN/Creatinine Ratio 15.00 Glucose 113 H Calculated Osmolality 283.1 Calcium 8.4 L Magnesium 2.1 - Imaging and Cardiology Cardiology Procedure: report reviewed by me Procedure: Chest x-ray: report reviewed by me DS: Provider Date of admission: 03/13/17 11:32 Attending physician on admission: Tyson Lou MD Consults: 03/11/17 15:44 Consult to Cardiac Rehabilitation [CONS] Routine Reason for Cardiac Rehabilitation: Risk Factor Modification Other Consult Comment: Evaluate and recommend 03/11/17 15:51 Consult to Physician [CONS] Routine Comment: Please manage ventilator Consulting Provider: Valentin Lynn Consulting Provider Notified: Yes Person Notified: Dr. Lynn Date Notified: 03/11/17 Time Notified: 17:05 Consult Notification Comment: Get ABGs and call him back. Discharging clinician: Marie Prince NP Expected date of discharge: 03/14/17
== END 2017-03-14 14:26 | disposition home or self-care (01) | DRG 246 ==
LOC: EDSEX → N.ED 14:02 → N.CC 14:13 → N.ED 16:09 → N.CC 16:11
PROVIDERS: ADMIT Internal Medicine Interventional Cardiology; ATTEND Internal Medicine Interventional Cardiology
PROC: CLCCHCL (ICD-10-PCS; 2017-03-11 14:45)